=== PATIENT | male | born 1970 | race Caucasian/White ===

== ENCOUNTER 2023-05-15 21:37 | Emergency (ER) | payer OTHER ==
[2023-05-15 22:06] LABS: Absolute Lymphocytes (CBC) 2.2 K/uL (0.7-4.9); Hematocrit 43.9 % (39.6-49.0); Lymphocytes % 23.1 % (15.3-44.8); MCV 91.9 fL (80-100); MPV 8.5 fL (7.6-11.3); RBC Red Blood Cell Count 4.77 M/uL (4.33-5.43)
[2023-05-15] MEDS ORDERED: MORPHINE 4 MG/ML SYR ONE ×2 (22:06→23:10)
[2023-05-15] MEDS ORDERED: ONDANSETRON 4 MG/2 ML VIAL ONE ×2 (22:06→22:55)
[2023-05-15] MEDS ORDERED: FAMOTIDINE 20 MG/2 ML VIAL IV ONE (22:06)
[2023-05-15] MEDS ORDERED: NA CHLORIDE 0.9% 1,000 ML ONE (22:06)
[2023-05-15 22:17] LABS: Albumin 3.9 g/dL (3.4-5.0); Bilirubin Total 0.3 mg/dL (0.2-1.0); Potassium 3.6 mEq/L (3.5-5.1); Protein, Total 7.6 g/dL (6.4-8.2)
--- NOTE | 2023-05-15 23:56 | ER ---
Nurse's Notes [facility] Name: Jared Shaw Age: 53 yrs Sex: Male : 1970 Arrival Date: 05/15/2023 Time: 21:37 Bed 19 Private MD: Diagnosis: Other cholelithiasis without obstruction;Hiatal hernia Presentation: 05/15 21:47 Chief complaint: Patient states: "I think I'm having a flare up of my hiatal hernia. 2 mb9 hrs ago I started getting stomach pain, N/V. Last time I felt like this was 4 years ago". Coronavirus screen: Vaccine status: Patient reports being unvaccinated. Ebola Screen: No symptoms or risks identified at this time. Initial Sepsis Screen: Does the patient meet any 2 criteria? No. Patient's initial sepsis screen is negative. Does the patient have a suspected source of infection? No. Patient's initial sepsis screen is negative. Risk Assessment: Do you want to hurt yourself or someone else? Patient reports no desire to harm self or others. Onset of symptoms was May 15, 2023. 21:47 Method Of Arrival: Ambulatory mb9 21:47 Acuity: JUAN PABLO 3 mb9 21:47 Acuity: JUAN PABLO 3 mb9 Triage Assessment: 21:49 General: Appears uncomfortable, Behavior is cooperative, appropriate for age. Pain: mb9 Complains of pain in abdomen. GI: Abdomen is round non-distended, Abd is soft Abdomen is tender to palpation in right upper quadrant, left upper quadrant and left lower quadrant Reports nausea, vomiting. Historical: - Allergies: 21:48 No Known Allergies; mb9 - Home Meds: 21:48 None [Active]; mb9 - PMHx: 21:48 Hypertensive disorder; hiatal hernia; mb9 - PSHx: 21:48 None; mb9 - Immunization history:: Adult Immunizations up to date. - Social history:: Smoking status: Patient denies any tobacco usage or history of. Screenin:05 [facility] ED Fall Risk Assessment (Adult) History of falling in the last 3 months, lg3 including since admission No falls in past 3 months (0 pts). Abuse screen: Denies threats or abuse. Denies injuries from another. Nutritional screening: No deficits noted. Tuberculosis screening: No symptoms or risk factors identified. Assessment: 22:05 General: Appears in no apparent distress. uncomfortable, Behavior is calm, cooperative. lg3 Pain: Complains of pain in abdomen Pain radiates to back. Neuro: No deficits noted. Brennan Agitation-Sedation Scale (RASS): 0 - Alert and Calm Level of Consciousness is awake, alert, obeys commands, Oriented to person, place, time, situation. Cardiovascular: No deficits noted. Denies chest pain, shortness of breath, Capillary refill < 3 seconds Clubbing of nail beds is absent JVD is absent Patient's skin is warm and dry. Respiratory: No deficits noted. Airway is patent Respiratory effort is even, unlabored, Respiratory pattern is regular, symmetrical. GI: Abdomen is round non-distended, obese, Reports upper abdominal pain, nausea, vomiting. : No deficits noted. No signs and/or symptoms were reported regarding the genitourinary system. EENT: No deficits noted. No signs and/or symptoms were reported regarding the EENT system. Derm: No deficits noted. No signs and/or symptoms reported regarding the dermatologic system. Skin is intact, is healthy with good turgor, Skin is dry, Skin is normal, Skin temperature is warm. Musculoskeletal: No deficits noted. No signs and/or symptoms reported regarding the musculoskeletal system. Circulation, motion, and sensation intact. Range of motion: intact in all extremities. 22:49 Reassessment: Patient appears in no apparent distress at this time. Patient and/or lg3 family updated on plan of care and expected duration. Pain level reassessed. GI: Reports upper abdominal pain, nausea. 05/16 00:11 Reassessment: Patient appears in no apparent distress at this time. No changes from lg3 previously documented assessment. Patient and/or family updated on plan of care and expected duration. Pain level reassessed. Patient is alert, oriented x 3, equal unlabored respirations, skin warm/dry/pink. Patient states feeling better. Patient states symptoms have improved. Vital Signs: 05/15 21:47 BP 178 / 94; Pulse 72; Resp 18; Temp 98(O); Pulse Ox 100% on R/A; Weight 107.5 kg; mb9 Height 5 ft. 11 in. ; Pain 8/10; 23:05 BP 163 / 92; Pulse 68; Resp 18 S; Pulse Ox 98% on R/A; lg3 05/16 00:12 BP 148 / 88; Pulse 69; Resp 17 S; Pulse Ox 99% on R/A; lg3 05/15 21:47 Body Mass Index 33.05 (107.50 kg, 180.34 cm) mb9 05/15 21:47 Pain Scale: Adult 9 ED Course: 05/15 21:39 Patient arrived in ED. jj6 21:40 Kermit Hernandez MD is Attending Physician. rn 21:41 [facility]-C [facility] kb 21:47 Arm band placed on. mb9 21:48 Triage completed. mb9 21:54 Shayna Stark, RN is Primary Nurse. lg3 21:55 Inserted saline lock: 22 gauge in left forearm, using aseptic technique. Blood lg3 collected. 21:55 Lipase Sent. lg3 21:55 CMP Sent. lg3 21:55 CBC with Diff Sent. lg3 22:05 Patient has correct armband on for positive identification. Placed in gown. Bed in low lg3 position. Call light in reach. Side rails up X 1. Client placed on continuous cardiac and pulse oximetry monitoring. NIBP monitoring applied. Door closed. Noise minimized. Warm blanket given. Family accompanied patient. 23:06 CT Abd/Pelvis - IV Contrast Only In Process Unspecified. EDMS 05/16 00:12 No provider procedures requiring assistance completed. IV discontinued, intact, lg3 bleeding controlled, No redness/swelling at site. Pressure dressing applied. Administered Medications: 05/15 22:05 Drug: NS 0.9% IV 1000 ml Route: IV; Rate: 1 bolus; Site: left forearm; lg3 22:05 Drug: Famotidine IVP 20 mg Route: IVP; Site: left forearm; lg3 22:48 Follow up: Response: No adverse reaction lg3 22:05 Drug: Ondansetron IVP 4 mg Route: IVP; Site: left forearm; lg3 22:48 Follow up: Response: No adverse reaction; Nausea unchanged lg3 22:05 Drug: morphine IVP or IV 4 mg Route: IVP; Infused Over: 4 mins; Site: left forearm; lg3 22:48 Follow up: Response: No adverse reaction; No change in condition; Pain is unchanged, lg3 physician notified 23:05 Drug: morphine IVP or IV 4 mg Route: IVP; Infused Over: 4 mins; Site: left forearm; lg3 05/16 00:10 Follow up: Response: No change in condition lg3 00:10 Follow up: Response: Marked relief of symptoms; Pain is decreased lg3 05/15 23:05 Drug: Ondansetron IVP 4 mg Route: IVP; Site: left forearm; lg3 05/16 00:10 Follow up: Response: No adverse reaction; No change in condition lg3 05/15 23:56 CANCELLED (Physician Discretion): Promethazine IVP 12.5 mg IVP once kb 05/16 00:10 Drug: Promethazine IM 12.5 mg Route: IM; Site: right deltoid; lg3 00:11 Follow up: Response: No adverse reaction lg3 Medication: 00:12 VIS not applicable for this client. lg3 Outcome: 05/15 23:55 Discharge ordered by . kb 05/16 00:12 Discharged to home ambulatory, with family. lg3 Condition: stable Discharge instructions given to patient, Instructed on discharge instructions, follow up and referral plans. medication usage, Demonstrated understanding of instructions, follow-up care, medications, Prescriptions given X 2. 00:13 Patient left the ED. lg3 Signatures: Dispatcher [employer] EDMS Itzel Kim, HVAC SALES ENGINEER-C HVAC SALES ENGINEER-Ckb Kermit Hernandez MD MD rn Gibson, Lacie, RN RN lg3 Filomena [id number] Norma Matos RN RN mb9
--- NOTE | 2023-05-15 23:56 | EDPHYS ---
Physician Documentation [facility] Name: Jared Shaw Age: 53 yrs Sex: Male : 1970 Arrival Date: 05/15/2023 Time: 21:37 Bed 19 Private MD: ED Physician Kermit Hernandez HPI: 05/15 23:47 This 53 yrs old Male presents to ER via Ambulatory with complaints of Nausea/Vomiting, kb Abdominal Pain. 23:47 The patient presents with abdominal pain in the upper abdomen. Onset: The kb symptoms/episode began/occurred today. The symptoms do not radiate. Associated signs and symptoms: Pertinent positives: nausea and vomiting, Pertinent negatives: constipation, diarrhea, fever. The symptoms are described as burning, constant. Modifying factors: The symptoms are alleviated by nothing, the symptoms are aggravated by nothing. Severity of pain: At its worst the pain was moderate in the emergency department the pain is unchanged. The patient has experienced similar episodes in the past, several times. The patient has not recently seen a physician. 23:47 "I have a hiatal hernia and think it's flaring up.". kb Historical: - Allergies: 21:48 No Known Allergies; mb9 - Home Meds: 21:48 None [Active]; mb9 - PMHx: 21:48 Hypertensive disorder; hiatal hernia; mb9 - PSHx: 21:48 None; mb9 - Immunization history:: Adult Immunizations up to date. - Social history:: Smoking status: Patient denies any tobacco usage or history of. ROS: 23:46 Constitutional: Negative for fever, chills, and weight loss. kb 23:46 Abdomen/GI: Positive for abdominal pain, nausea and vomiting. 23:46 All other systems are negative. Exam: 23:46 Constitutional: This is a well developed, well nourished patient who is awake, alert, kb and in no acute distress. Head/Face: Normocephalic, atraumatic. ENT: Moist Mucous membranes Cardiovascular: Regular rate and rhythm with a normal S1 and S2. No gallops, murmurs, or rubs. No pulse deficits. Respiratory: Respirations even and unlabored. No increased work of breathing. Talking in full sentences Skin: Warm, dry with normal turgor. Normal color. MS/ Extremity: Pulses equal, no cyanosis. Neurovascular intact. Full, normal range of motion. Neuro: Awake and alert, GCS 15, oriented to person, place, time, and situation. Moves all extremities. Normal gait. 23:46 Abdomen/GI: Inspection: abdomen appears normal, Bowel sounds: normal, in all quadrants, Palpation: soft, in all quadrants, mild abdominal tenderness, in the right lower quadrant and left lower quadrant, moderate abdominal tenderness, in the right upper quadrant and left upper quadrant. Vital Signs: 21:47 BP 178 / 94; Pulse 72; Resp 18; Temp 98(O); Pulse Ox 100% on R/A; Weight 107.5 kg; mb9 Height 5 ft. 11 in. ; Pain 8/10; 23:05 BP 163 / 92; Pulse 68; Resp 18 S; Pulse Ox 98% on R/A; lg3 05/16 00:12 BP 148 / 88; Pulse 69; Resp 17 S; Pulse Ox 99% on R/A; lg3 05/15 21:47 Body Mass Index 33.05 (107.50 kg, 180.34 cm) 9 05/15 21:47 Pain Scale: Adult mb9 MDM: 05/15 21:40 Patient medically screened. rn 23:47 Data reviewed: vital signs, nurses notes. kb 23:48 Differential diagnosis: cholecystitis, Cholelithiasis, gastritis, gastroesophageal kb reflux disease, non-specific abd pain, pancreatitis, hiatal hernia. 23:54 Counseling: I had a detailed discussion with the patient and/or guardian regarding: the kb historical points, exam findings, and any diagnostic results supporting the discharge/admit diagnosis, lab results, radiology results, the need for outpatient follow up, a family practitioner, a general surgeon, a biomedical equipment support specialist. ED course: Pt reports improvement in nausea and pain. In agreement with outpatient followup. 05/15 21:44 Order name: CBC with Diff; Complete Time: 22:15 kb 05/15 21:44 Order name: CMP; Complete Time: 22:19 kb 05/15 21:44 Order name: Lipase; Complete Time: 22:19 kb 05/15 21:44 Order name: CT Abd/Pelvis - IV Contrast Only kb 05/15 21:44 Order name: IV Saline Lock; Complete Time: 21:55 kb 05/15 21:44 Order name: Labs collected and sent; Complete Time: 21:55 kb Administered Medications: 22:05 Drug: NS 0.9% IV 1000 ml Route: IV; Rate: 1 bolus; Site: left forearm; lg3 22:05 Drug: Famotidine IVP 20 mg Route: IVP; Site: left forearm; lg3 22:48 Follow up: Response: No adverse reaction lg3 22:05 Drug: Ondansetron IVP 4 mg Route: IVP; Site: left forearm; lg3 22:48 Follow up: Response: No adverse reaction; Nausea unchanged lg3 22:05 Drug: morphine IVP or IV 4 mg Route: IVP; Infused Over: 4 mins; Site: left forearm; lg3 22:48 Follow up: Response: No adverse reaction; No change in condition; Pain is unchanged, lg3 physician notified 23:05 Drug: morphine IVP or IV 4 mg Route: IVP; Infused Over: 4 mins; Site: left forearm; lg3 05/16 00:10 Follow up: Response: No change in condition lg3 00:10 Follow up: Response: Marked relief of symptoms; Pain is decreased lg3 05/15 23:05 Drug: Ondansetron IVP 4 mg Route: IVP; Site: left forearm; lg3 05/16 00:10 Follow up: Response: No adverse reaction; No change in condition lg3 05/15 23:56 CANCELLED (Physician Discretion): Promethazine IVP 12.5 mg IVP once kb 05/16 00:10 Drug: Promethazine IM 12.5 mg Route: IM; Site: right deltoid; lg3 00:11 Follow up: Response: No adverse reaction lg3 Disposition: 02:43 Co-signature as Attending Physician, Kermit Hernandez MD I reviewed the patient's care rn provided by the Advanced Practice Provider and agree with the diagnosis and treatment plan. Disposition Summary: 05/15/23 23:55 Discharge Ordered Location: Home kb Condition: Stable kb Diagnosis - Other cholelithiasis without obstruction kb - Hiatal hernia kb Followup: kb - With: Emergency Department - When: As needed - Reason: Worsening of condition Followup: kb - With: Private Physician - When: 2 - 3 days - Reason: Recheck today's complaints, Continuance of care, Re-evaluation by your physician Discharge Instructions: - Discharge Summary Sheet kb - Hiatal Hernia kb - Cholelithiasis, [id number] kb Forms: - Medication Reconciliation Form kb - Thank You Letter kb - Antibiotic Education kb - Prescription Opioid Use kb Prescriptions: - Zofran 4 mg Oral Tablet - take 1 tablet by ORAL route every 6 hours As needed; 12 tablet; Refills: 0, kb Product Selection Permitted - dicyclomine 20 mg Oral Tablet - take 1 tablet by ORAL route 4 times per day As needed; 20 tablet; Refills: 0, kb Product Selection Permitted Signatures: Dispatcher [employer] EDItzel Perry, TRINO DIAZP-Kermit Escobar MD MD rn Gibson, Lacie, RN RN lg3 Norma aMtos RN RN mb9 Corrections: (The following items were deleted from the chart) 05/15 23:56 23:56 Promethazine IVP 12.5 mg IVP once ordered. kb kb
[2023-05-16] MEDS ORDERED: PROMETHAZINE INJ 25 MG/ML AMP ONE (00:10)
[2023-05-16 00:48] VITALS: TEMP 98
[2023-05-16 00:52] VITALS: BP 148/88; O2SAT 99
--- NOTE | 2023-05-16 15:48 | RAD REPORT ---
EXAM DESCRIPTION: CT - Abdomen Pelvis W Contrast - 05/16/2023 6:26 am CLINICAL HISTORY: ABD PAIN TECHNIQUE: Contiguous axial images obtained through the abdomen and pelvis following the uneventful administration of IV contrast. Coronal and sagittal reformatted images were provided. This exam was performed according to our departmental dose-optimization program, which includes autom ated exposure control, adjustment of the mA and/or kV according to patient size and/or use of iterati ve reconstruction technique. COMPARISON: None available for comparison. FINDINGS: Lung bases: Clear Liver: Unremarkable Gallbladder and biliary system: Multiple cholesterol gallstones. Pancreas: Unremarkable Spleen: Unremarkable Adrenals: Unremarkable Kidneys: Normal renal cortical enhancement. No calculi. No hydronephrosis. GI: Small hiatal hernia. No obstruction. No appreciable mucosal thickening. Appendix: No findings to suggest acute appendicitis. Urinary bladder: Unremarkable Reproductive: Unremarkable as visualized Lymph nodes: No pathologically enlarged lymph nodes. Peritoneum: No focal fluid collection. No free air. Vessels: No abdominal aortic aneurysm. Abdominal wall: Open right inguinal ring with no herniated segments of bowel. Bones: Unremarkable IMPRESSION: 1. No acute intra-abdominal or pelvic disease. 2. Open right inguinal ring with no herniated segments of bowel. 3. Cholelithiasis. 4. Small hiatal hernia. Electronically signed by: Nash Oviedo MD 05/15/2023 11:40 PM CDT Due to temporary technical issues with the PACS/Fluency reporting system, reports are being signed by the in house radiologists without review as a courtesy to insure prompt reporting. The interpreting radiologist is fully responsible for the content of the report.
== END 2023-05-16 00:13 | disposition home or self-care (01) ==
LOC: ER 21:37
DX: K80.80 Other cholelithiasis without obstruction (principal); K44.9 Diaphragmatic hernia without obstruction or gangrene; I10 Essential (primary) hypertension
CPT/HCPCS: 85025; 36415; 83690; 80053; 74177; 96375; 96372; 96374; 99284; Q9967; J2550; J2405 ×2; J7030